=== PATIENT | female | born 1965 | race Caucasian/White ===

== ENCOUNTER 2018-09-16 05:38 | Day surgery (SDC) | payer BC ==
[~2018-09-16 05:38] MED LIST: Buffered Lidocaine 1% SYRIN* 1 ML/SYRINGE INTRADERM ONE
[2018-09-16] MEDS ORDERED: Famotidine IV* 10 MG/ML 2 ML (20 mg) IV ONE (06:00)
[2018-09-16] MEDS ORDERED: Lactated Ringers 1000 ML Bag* 1,000 ML IV SCH (06:00)
[2018-09-16] MEDS ORDERED: ceFAZolin 2 GM PREMIX in ORs 2 GM/50 ML BAG IVPB ONE (06:04)
[2018-09-16] MEDS ORDERED: Famotidine IV* 10 MG/ML 2 ML (20 mg) ONE (06:04)
[2018-09-16] MEDS ORDERED: Buffered Lidocaine 1% SYRIN* 1 ML/SYRINGE INTRADERM ONE (06:04)
[2018-09-16] MEDS ORDERED: Lidocaine 2% PF* 10 ML AMP ONE (06:53)
[2018-09-16] MEDS ORDERED: Bupivacaine 0.5%* 50 ML VIAL ONE (06:53)
[2018-09-16] MEDS ORDERED: Midazolam* 1 MG/ML 5 ML VIAL (5 MG) ONE (07:21)
[2018-09-16] MEDS ORDERED: fentaNYL* 50 MCG/ML 2 ML VIAL (100 MCG VIAL) ONE ×2 (07:21→08:09)
[2018-09-16] MEDS ORDERED: ROPIVACAINE 5 MG/ML 30 ML BTL (0.5%) ONE (07:25)
[2018-09-16] MEDS ORDERED: Lidocaine 1%* 5 ML VIAL ONE (07:25)
[2018-09-16] MEDS ORDERED: Propofol* 10 MG/ML 20 ML BTL ONE ×2 (08:02→09:27)
[2018-09-16] MEDS ORDERED: Dexamethasone IV* 4 MG/ML 1 ML (4 MG) ONE (08:02)
[2018-09-16] MEDS ORDERED: Lidocaine 2% PF * 5 ML VIAL ONE (08:02)
[2018-09-16] MEDS ORDERED: Ondansetron INJ* 2 MG/ML VIAL ONE (08:02)
[2018-09-16] MEDS ORDERED: DiMENhydriNATE IV* 50 MG/ML VIAL ONE (08:02)
[2018-09-16] MEDS ORDERED: Ketorolac INJ* 30 MG/ML 1 ML VIAL ONE (08:02)
[2018-09-16] MEDS ORDERED: oxyCODONE TAB* 5 MG TAB PO PRN (08:50)
[2018-09-16] MEDS ORDERED: DiMENhydriNATE IV* 50 MG/ML VIAL IV PUSH PRN (08:50)
[2018-09-16] MEDS ORDERED: Acetaminophen IV 1GM/100ML * 1,000 MG/100 ML VIAL IVPB ONE (08:50)
[2018-09-16] MEDS ORDERED: Naloxone* 0.4 MG/ML 1 ML VIAL IV PRN (08:50)
[2018-09-16] MEDS ORDERED: Acetaminophen IV 1GM/100ML * 100 ML ONE (09:45)
[2018-09-16] MEDS ORDERED: HYDROmorphone INJ1* 1 MG/ML SYRINGE ONE (09:47)
[2018-09-16] MEDS: HYDROmorphone INJ1* 1 MG/ML SYRINGE IV PRN ×2 (09:49→09:55)
[2018-09-16] MEDS ORDERED: oxyCODONE TAB* 5 MG TAB ONE (09:56)
[2018-09-16 12:21] VITALS: BP 113/72
--- NOTE | 2018-09-16 20:38 | OP ---
DATE OF OPERATION: 09/16/18 - [facility] DATE OF : 61 SURGEON: Zachery Hurtado MD ASSISTANTS: Delta Mercado MD and Leticia Olmedo PA-C PRE-OP DIAGNOSIS: Degenerative arthritis, left second and third transmetatarsal joints. POST-OP DIAGNOSIS: Degenerative arthritis, left second and third transmetatarsal joints. OPERATIVE PROCEDURE: Internal fusion of the left second and third TMT joints using tibial bone graft. DESCRIPTION OF PROCEDURE: The patient was taken to the operating room where a longitudinal incision was made more or less over the dorsal aspect of the third metatarsal shaft and the third cuneiform. Through this interspace, we reflected soft tissues, cutaneous nerves, blood vessels using subperiosteal dissection to visualize the dorsum of the second and third TMT joints. There were large dorsal osteophytes of both these joints, which were removed with the rongeur. We then used the retractor to open the second TMT joint and then the third TMT joint, which were both prepared for arthrodesis using a 2.4 mm power van and a small osteotome. Proximally, at Gerdy's tubercle, a 3-cm incision was made obliquely. We split the fibers of the iliotibial band to allow visualization of the cortex, which was opened up with the small power van. We then harvested cancellous autograft with a medium sized curette with placing the defect with allograft chips packed under pressure. We then closed this area with 2-0 Vicryl suture subperiosteal, 3-0 Monocryl for the skin and 3-0 Monocryl subcuticular. The autograft was then placed between the second and third TMT joints, which were then compressed with mely from the [employer]th[employer] kit. These were 18 mm spaced and placed under compression. One for the second TMT, two for the third TMT. X-rays intraoperatively showed satisfactory position and alignment. The wound was then closed sequentially after irrigation using 3-0 Vicryl and nylon for the skin. Compression dressing, plaster splint applied. [id number]/[facility] #: [id number] [facility]
== END 2018-09-16 12:38 | disposition home or self-care (01) ==
LOC: OR 05:38
PROVIDERS: ATTEND Orthopaedic Surgery
DX: M19.072 Primary osteoarthritis, left ankle and foot (principal)
CPT/HCPCS: 76000; 81025; A9270-GY; C1713; C1776; J0690; J1100; J1170; J1240; J1885; J2001; J2250; J2405; J2704; J2795; J3010; J3490